=== PATIENT | female | born 1940 | race Two or more races ===

== ENCOUNTER 2023-10-22 07:16 | Emergency (ER) | payer OTHER ==
[~2023-10-22] VITALS: Ht 167.6 cm; Wt 67.1 kg
[2023-10-22] MEDS ORDERED: SYNTHROID75 MCG (07:20)
[2023-10-22] MEDS ORDERED: BENAZEPRIL HCL10 MG (07:21)
[2023-10-22] MEDS ORDERED: KETOROLAC TROMETHAMINE 30 MG VIAL IM STA (08:22)
[2023-10-22 08:48] LABS: HEMATOCRIT 36.6 % (36.0-45.00); HEMOGLOBIN 12.3 g/dL (12.0-15.00); MEAN CELL VOLUME 80.8 fL (80.00-100.00); MEAN CORPUSCULAR HEMOGLOBIN 27.1 pg (27.00-32.0); MEAN CORPUSCULAR HGB CONC 33.5 g/dl (32.0-36.0); PLATELET COUNT 412 K/uL (150-450); RED BLOOD COUNT 4.52 M/uL (4.00-6.00); RED CELL DISTRIBUTION WIDTH 14.1 % (11.5-14.5)
[2023-10-22 08:58] LABS: URINE APPEARANCE Clear; URINE BILIRRUBIN Negative (NEGATIVE); URINE BLOOD Negative; URINE COLOR Yellow; URINE GLUCOSE Negative (NEGATIVE); URINE LEUKOCYTE Negative; URINE NITRATE Negative; URINE PROTEIN Negative (NEGATIVE); URINE UROBILINOGEN 0.2 E.U./dl
[2023-10-22 09:01] LABS: URINE RBC 2.5 uL (0.0-20.8)
[2023-10-22 09:04] LABS: URINE BACTERIA 3.7 uL (0.0-1933); URINE EPITHELIAL CELLS 0.6 uL (0.0-38.8); URINE WBC 1.5 uL (0.0-23.2)
[2023-10-22 09:09] LABS: CALCIUM 9.5 mg/dL (8.5-10.1); CREATININE SERUM 0.86 mg/dL (0.55-1.02); GFR 63.17; POTASSIUM 3.73 mEq/L (3.5-5.1)
== END 2023-10-22 09:31 | disposition home or self-care (01) ==
LOC: ER 07:17
PROVIDERS: General Practice
DX: M54.9 Dorsalgia, unspecified (principal)
CPT/HCPCS: 36415; 96372; 99282; J1885